=== PATIENT | male | born 1995 | race Caucasian/White ===

== ENCOUNTER 2018-09-08 11:29 | Day surgery (SDC) | payer OTHER ==
[2018-09-07 14:36] VITALS: BMI 22.1
[2018-09-08] MEDS ORDERED: CEFAZOLIN/Water 2 GM/20 ML SYRINGE ONE (12:10)
[2018-09-08] MEDS ORDERED: Lidocaine 1% PF 5 ML VIAL ONE (12:51)
[2018-09-08] MEDS ORDERED: Ketorolac Tromethamine 30 MG/ML VIAL ONE (12:51)
[2018-09-08] MEDS ORDERED: PROPOFOL 200 MG/20 ML VIAL ONE (12:51)
[2018-09-08] MEDS ORDERED: Ondansetron HCl/PF 4 MG/2 ML Vial ONE (12:51)
[2018-09-08] MEDS ORDERED: Dexamethasone 20 MG/5 ML VIAL ONE (12:51)
[2018-09-08] MEDS ORDERED: Fentanyl 100 MCG/2 ML VIAL ONE ×3 (13:00→15:31)
[2018-09-08] MEDS ORDERED: Midazolam HCl 2 mg/2 ml Vial ONE (13:25)
[2018-09-08] MEDS ORDERED: HYDROmorphone 2 MG/ML VIAL ONE (15:52)
[2018-09-08] MEDS ORDERED: HYDROcodone/Acetaminophen 5/325 mg Tablet ONE (16:29)
--- NOTE | 2018-09-08 18:40 | RAD ---
TWO VIEWS RIGHT HAND: 09/08/18 HISTORY: Intraoperative radiograph dated 09/08/18. Two intraoperative images demonstrate placement of a transosseous wire across the fractured fourth ri ght metacarpal. Proximal and distal fractures are in good anatomic alignment. IMPRESSION: Status post reduction of fourth metacarpal fracture. POS: [facility]
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
== END 2018-09-09 17:05 | disposition home or self-care (01) ==
LOC: SDC 11:29
PROVIDERS: ATTEND Orthopaedic Surgery
PROC: 0PHP34Z Insertion of Internal Fixation Device into Right Metacarpal, Percutaneous Approach (ICD-10-PCS; principal; 2018-09-08)
DX: S62.324A Displaced fracture of shaft of fourth metacarpal bone, right hand, initial encounter for closed fracture (principal); X58.XXXA Exposure to other specified factors, initial encounter
CPT/HCPCS: 76001; 96374; 96375; J1100; J1170; J1885; J2001; J2250; J2405; J2704; J3010